=== PATIENT | female | born 2000 ===

== ENCOUNTER 2025-01-06 10:33 | Emergency (ER) | payer SELFPAY ==
[2025-01-06 10:35] VITALS: BP 131/72; PULSE 95; RESP 18; TEMP 36.8; O2SAT 100; BMI 20.2
--- NOTE | 2025-01-06 10:53 | ED.GENADULT ---
HPI - General Adult General Chief complaint: Wound/Laceration Stated complaint: L thumb laceration Time Seen by Provider: 01/06/25 10:43 Source: patient, family, RN notes reviewed, old records reviewed and wax pumper Mode of arrival: ambulatory Limitations: no limitations History of Present Illness ED Provider: Clive HPI narrative: Patient is a 24-year-old Lithuanian-speaking right hand dominant female presenting to the emergency department with complaint of laceration to left thumb. States she cut it accidentally with a kitchen knife. Unsure last Tdap. Complains of 3/10 pain, denies numbness. complaint: Laceration Onset (ago): minute(s) Related Data Allergies Allergy/AdvReac Type Severity Reaction Status Date / Time No Known Allergies Allergy Verified 01/06/25 10:38 Review of Systems Review of Systems: As per HPI Yes all other systems are reviewed and are negative Constitutional: Constitutional: Reports as per HPI [facility] Social History Social History Advance Directives: No Advance Directives Information Provided: No Do you have a plan to hurt others: No Plan Physical Exam ED Vital Signs: Vital Signs - 24 hr 01/06/25 10:35 Temperature 98.3 F Pulse Rate 95 Respiratory Rate 18 Blood Pressure 131/72 Pulse Oximetry 100 Oxygen Delivery Method Room Air BMI result Body Mass Index 20.2 Vital signs have been reviewed and appear to be correct. Blood pressure normal. Heart rate normal. Respiratory rate normal. Temperature normal. Oxygen saturation normal. Const General: cooperative, healthy appearing and no acute distress Orientation/consciousness: oriented to person, oriented to place, oriented to time and patient oriented x3 Limitations: no limitations HENMT Head: Yes normocephalic and Yes atraumatic Ears: external ears normal General nose exam: Normal external nose present Face and sinus: Yes face symmetric Mouth: oropharynx normal and moist mucous membranes Throat: Yes uvula midline Eyes Pupils: Equal, round and reactive pupils present Neck Neck: Yes normal visual inspection and Yes supple Resp Effort & Inspection: normal respiratory effort and able to speak in complete sentences Auscultation: clear to auscultation bilaterally Cardio Rate: regular rate Rhythm: regular rhythm Heart sounds: S1 normal heart sound present and S2 normal heart sound present GI Palpation (GI): Soft to palpation and nontender Auscultation: normoactive bowel sounds General: Yes no CVA tenderness Back/Spine/Pelvis Back: no CVA tenderness Skin General skin exam: elasticity normal and turgor normal Neuro General: oriented to person, oriented to place, oriented to time, patient oriented x3, moves all extremities, no focal motor deficits and CN's II-XI intact bilaterally Cranial nerves: Yes Equal, round and reactive pupils present Cognition (Neuro): normal cognition Extrem General: Yes full ROM, Yes no pedal edema and Yes no calf tenderness Left upper extremity: hand Hand/finger images: 1. 1cm avulsion to radial side of left thumb with minor oozing of blood, no nail involvement Psych Mental Status: mental status grossly normal Affect: normal affect Thought process: Normal thought process present Medications Administered Discontinued Medications Generic Name Dose Route Start Last Admin Trade Name Freq PRN Reason Stop Dose Admin Bacitracin 1 appl 01/06/25 10:54 01/06/25 11:02 Bacitracin Oint 0.9 Gm Packet TOPICAL 01/06/25 10:55 1 appl ONCE ONE Administration Protocol Diphtheria/Tetanus/Acell Pertussis 0.5 ml 01/06/25 10:54 01/06/25 11:00 Diphth,Pertus(Acell),Tet Adult 0.5 Ml Syringe IM 01/06/25 10:55 0.5 ml .ONCE ONE Administration Medical Decision Making Medical Decision Making [facility] Narrative: Patient is a 24-year-old Lithuanian-speaking right hand dominant female presenting to the emergency department with complaint of laceration to left thumb. On exam patient is awake, A+Ox3, VS WNL, afebrile, normal neurological exam without focal deficits, physical exam findings as above. Given reported symptoms and physical exam findings, initial differential includes but is not limited to avulsion, laceration. No nail involvement. Will update Tdap in the emergency department. Wound thoroughly cleansed and bacitracin and dressing applied. Wound care instructions discussed with patient as well as return precautions. Follow up with PCP as needed. Patient verbalized understanding of and agreement with plan. In-person supervisor home energy consultant was utilized for all interactions, assessments, and discussions. Differential Diagnosis Differential Diagnoses: The differential diagnosis associated with the presentation includes as per mdm External Record Review External record reviewed: Inpatient record, Office record and Outpatient record Discharge Plan Discharge Clinical Impression: Avulsion of skin Patient Disposition: Home, Self-Care Instructions: Diphtheria/Acellular Pertussis/Tetanus Vaccine (By injection), Finger Laceration (ED) Additional Instructions: You have been evaluated in the emergency department today for a laceration to your thumb. Please keep the area surrounding the laceration clean and dry and keep dressing in place for the next 24 hours. After that please change the dressing and assess the wound daily. You can apply a very thin layer of an antibiotic ointment such as bacitracin or Neosporin daily. Do not submerge the wound in water until the stitches has been removed and the wound has fully healed (no washing dishes, swimming, hot tubs, etc. and ESPECIALLY no outdoor water). Your tetanus vaccine was updated today. If you develop fever, redness, swelling at the site of your laceration, or thick yellow drainage please come back to the ER for a wound check. Print Language: Lithuanian
[2025-01-06] MEDS: Diphth,Pertus(ACell),Tet Adult 0.5 ML SYRINGE IM (11:00)
[2025-01-06] MEDS: Bacitracin Oint 0.9 GM PACKET 1 APPL TOPICAL (11:02)
[2025-01-06 11:07] VITALS: BP 131/72; PULSE 95; RESP 18; TEMP 36.8; O2SAT 100
== END 2025-01-06 11:07 | disposition home or self-care (01) ==
PROVIDERS: Emergency Provider Emergency Medicine
DX: S61.012A Laceration without foreign body of left thumb without damage to nail, initial encounter (principal); W26.0XXA Contact with knife, initial encounter; Y93.9 Activity, unspecified; Y92.010 Kitchen of single-family (private) house as the place of occurrence of the external cause; Y99.9 Unspecified external cause status; Z23 Encounter for immunization
CPT/HCPCS: 90471; 90715; 99282; 99284